=== PATIENT | female | born 1995 | race Caucasian/White ===

== ENCOUNTER → 2017-03-06 | Outpatient (CLI) | payer BC ==
--- NOTE | 2017-03-06 15:40 | DIAGNOSTIC IMAGING REPORT ---
LUMBAR SPINE 5 VIEWS CLINICAL HISTORY: Fall with low back pain. FINDINGS: 5 views of the lumbar spine are obtained. No prior studies are available for comparison at the time of dictation. The skeletal structures are well mineralized. There is no radiographic evidence of fracture or malalignment. Vertebral body height and alignment are maintained. The transverse and spinous processes are intact. There is no evidence of spondylolysis. The intervertebral disc spaces are well-maintained. The visualized bony pelvis appears intact. There is a nonobstructed abdominal bowel gas pattern. IMPRESSION: Unremarkable radiographic evaluation of the lumbosacral spine. Electronically signed by: Wiley Kumar M.D. 03/06/2017 3:38 PM Dictated Date/Time: 03/06/2017 3:38 PM
== END | disposition home or self-care (01) ==
LOC: C.RAD1850 15:11
PROVIDERS: ATTEND Nurse Practitioner
DX: M54.5 Low back pain (principal); W19.XXXA Unspecified fall, initial encounter